=== PATIENT | male | born 1960 | race Caucasian/White ===

== ENCOUNTER 2017-06-01 08:38 | Emergency (ER) | payer OTHER ==
[~2017-06-01] VITALS: Ht 193 cm; Wt 108.9 kg
[2017-06-01] MEDS ORDERED: COUMADIN5 MG PO (08:53)
[2017-08-14] MEDS ORDERED: GLUCOSAMINE &1 EACH PO (14:48)
== END 2017-06-01 09:40 | disposition left against medical advice (07) ==
LOC: ED 08:38
DX: Z53.21 Procedure and treatment not carried out due to patient leaving prior to being seen by health care provider (principal)

== ENCOUNTER 2019-02-13 09:24 | Emergency (ER) | payer OTHER ==
[~2019-02-13] VITALS: Ht 193 cm; Wt 136.1 kg
[~2019-02-13 09:24] MED LIST: COUMADIN5 MG PO; GLUCOSAMINE &1 EACH PO; LISINOPRIL10 MG PO; MAGNESIUM500 MG PO
--- OUTSIDE RECORDS SUMMARY | 2019-02-13 09:28 | XMS ---
PreManage Notification: ELSI GRECO Security Licensed Physical Therapist Events No recent Security Events currently on file CRITERIA MET - Group Notification CARE PROVIDERS There are no care providers on record at this time. Melanie has no Care Guidelines for this patient. Pablo VISIT COUNT (12 MO.) 1 [facility] TOTAL 1 NOTE: Visits indicate total known visits. ED/C VISIT TRACKING (12 MO.) 02/13/2019 09:25 [facility] [place] TYPE: Emergency COMPLAINT: - BLOOD PRESSURE PROBLEM INPATIENT VISIT TRACKING (12 MO.) No inpatient visits to display in this time frame [id number]
== END 2019-02-13 09:40 | disposition home or self-care (01) ==
LOC: ED 09:24
DX: Z01.30 Encounter for examination of blood pressure without abnormal findings (principal)

== ENCOUNTER 2019-04-07 22:56 | Emergency (ER) | payer OTHER ==
[~2019-04-07] VITALS: Ht 193 cm; Wt 144.2 kg
--- OUTSIDE RECORDS SUMMARY | 2019-04-07 22:58 | XMS ---
PreManage Notification: ELSI GRECO Security Automotive Service Writer Events No recent Security Events currently on file CRITERIA MET - [facility] - Has Care Guidelines CARE PROVIDERS BIANCA REDMOND Internal Medicine 02/14/2019-Current PHONE: Unknown Melanie has no Care Guidelines for this patient. Care History Medical/Surgical 02/14/2019 [facility] - Patient is currently established with [facility]. If patient is seen in the ED during business hours. Please contact CHWs at [facility]. Care Recommendation: This patient has had 5 or more Emergency Department visits in the last 12 months.\T\nbsp; Patient requires education on the scope and purpose of the ED as an acute care provider not a Primary Care Provider and should not be utilized for chronic conditions.\T\nbsp;These are guidelines and the provider should exercise clinical judgment when providing care E.D. VISIT COUNT (12 MO.) 2 [facility] TOTAL 2 NOTE: Visits indicate total known visits. ED/UCC VISIT TRACKING (12 MO.) 04/07/2019 22:56 [facility] [place] TYPE: Emergency COMPLAINT: - BLOOD IN STOOL 02/13/2019 09:25 [facility] [place] TYPE: Emergency COMPLAINT: - BLOOD PRESSURE PROBLEM DIAGNOSES: - Encounter for examination of blood pressure without abnormal findings INPATIENT VISIT TRACKING (12 MO.) No inpatient visits to display in this time frame [email or web address]
== END 2019-04-08 00:19 | disposition home or self-care (01) ==
LOC: ED 22:56
DX: R19.5 Other fecal abnormalities (principal); I10 Essential (primary) hypertension; E11.9 Type 2 diabetes mellitus without complications; Z87.891 Personal history of nicotine dependence; Z88.0 Allergy status to penicillin; Z79.01 Long term (current) use of anticoagulants; Z79.899 Other long term (current) drug therapy
CPT/HCPCS: 80053; 85025; 85610; 85730; 86850; 86900; 86901; 99282

== ENCOUNTER 2019-04-08 06:44 | Emergency (ER) | payer OTHER ==
[~2019-04-08] VITALS: Ht 193 cm; Wt 144.2 kg
--- OUTSIDE RECORDS SUMMARY | 2019-04-08 06:46 | XMS ---
PreManage Notification: ELSI GRECO Security Subsystems Engineer Events No recent Security Events currently on file CRITERIA MET - [facility] - Has Care Guidelines - [facility] - 2 Visits in 30 Days CARE PROVIDERS BIANCA REDMOND Internal Medicine 02/14/2019-Current PHONE: Unknown Melanie has no Care Guidelines for this patient. Care History Medical/Surgical 02/14/2019 [facility] - Patient is currently established with [facility]. If patient is seen in the ED during business hours. Please contact CHWs at [facility]. Care Recommendation: This patient has had 5 or more Emergency Department visits in the last 12 months.\T\nbsp; Patient requires education on the scope and purpose of the ED as an acute care provider not a Primary Care Provider and should not be utilized for chronic conditions.\T\nbsp;These are guidelines and the provider should exercise clinical judgment when providing care E.D. VISIT COUNT (12 MO.) 3 [facility] TOTAL 3 NOTE: Visits indicate total known visits. ED/UCC VISIT TRACKING (12 MO.) 04/08/2019 06:44 [facility] TYPE: Emergency COMPLAINT: - URINATING BLOOD 04/07/2019 22:56 [facility] TYPE: Emergency COMPLAINT: - BLOOD IN STOOL 02/13/2019 09:25 [facility] TYPE: Emergency COMPLAINT: - BLOOD PRESSURE PROBLEM DIAGNOSES: - Encounter for examination of blood pressure without abnormal findings INPATIENT VISIT TRACKING (12 MO.) No inpatient visits to display in this time frame [email or web address]
== END 2019-04-08 22:30 | disposition short-term general hospital (02) ==
LOC: ED 06:44
DX: R31.0 Gross hematuria (principal); N28.89 Other specified disorders of kidney and ureter; D68.59 Other primary thrombophilia; I10 Essential (primary) hypertension; E11.9 Type 2 diabetes mellitus without complications; Z87.891 Personal history of nicotine dependence; Z88.0 Allergy status to penicillin; Z79.01 Long term (current) use of anticoagulants; Z79.899 Other long term (current) drug therapy
CPT/HCPCS: 36415; 74176; 76775; 81001; 85025; 85610; 86850; 86900; 86901; 87077; 87088; 87186; 93970; 96374; 99285-25; J2405

== ENCOUNTER 2020-01-27 12:09 | Emergency (ER) | payer OTHER ==
[~2020-01-27] VITALS: Ht 193 cm; Wt 145.2 kg
[~2020-01-27 12:09] MED LIST changes: +ELIQUIS5 MG PO
--- OUTSIDE RECORDS SUMMARY | 2020-01-27 12:14 | XMS ---
PreManage Notification: ELSI GRECO Security Area Director Of Home Health Sales Events No recent Security Events currently on file CRITERIA MET - [facility] - Has Care Guidelines CARE PROVIDERS BIANCA REDMOND Internal Medicine 02/14/2019-Current PHONE: [phone] Melanie has no Care Guidelines for this patient. Care History Medical/Surgical 02/14/2019 [facility] - Patient is currently established with [facility]. If patient is seen in the ED during business hours. Please contact CHWs at [facility]. Care Recommendation: This patient has had [...] providing care E.D. VISIT COUNT (12 MO.) [address] [facility] TOTAL 4 NOTE: Visits indicate total known visits. ED/UCC VISIT TRACKING (12 MO.) 01/27/2020 12:11 [facility] TYPE: Emergency COMPLAINT: - R ARM NUMB, DIFFICULTY SPEAKING 04/08/2019 06:44 [facility] TYPE: Emergency COMPLAINT: - URINATING BLOOD DIAGNOSES: - Other primary thrombophilia - Type 2 diabetes mellitus without complications - Gross hematuria - Hematuria, unspecified - Personal history of nicotine dependence - Other custodial (current) drug therapy - penitentiary (current) use of anticoagulants - Essential (primary) hypertension - Other specified disorders of kidney and ureter - Allergy status to penicillin 04/07/2019 22:56 [facility] [place] TYPE: Emergency COMPLAINT: - BLOOD IN STOOL DIAGNOSES: - Personal history of nicotine dependence - Type 2 diabetes mellitus without complications - Allergy status to penicillin - Other custodial (current) drug therapy - Other fecal abnormalities - Essential (primary) hypertension - penitentiary (current) use of anticoagulants 02/13/2019 09:25 [facility] TYPE: Emergency COMPLAINT: - BLOOD PRESSURE PROBLEM DIAGNOSES: - Encounter for examination of blood pressure without abnormal INPATIENT VISIT TRACKING (12 MO.) 07/11/2019 05:[address] [facility] TYPE: Urology DIAGNOSES: 14512. Other specified disorders of kidney and ureter 83521. 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 TYPE: Urology DIAGNOSES: 64844. Gross hematuria [email or web address]
[2020-01-27] MEDS ORDERED: K-TAB ER20 MEQ PO (12:24)
--- NOTE | 2020-01-28 19:43 | EKG ---
[facility] [address] [place], [place] [address] Signed Normal sinus rhythm Left axis deviation Right bundle branch block Abnormal ECG No previous ECGs available Confirmed by YUDI JIMENEZ DO ([id number]) on 01/28/2020 7:42:54 PM Electronically Signed By: YUDI JIMENEZ DO 01/28/201942 PATIENT NAME: ELSI GRECO Electrocardiogram DATE OF : 60 PHYSICIAN: YUDI JIMENEZ DO REPORT #: [id number] REPORT IS CONFIDENTIAL AND NOT TO BE RELEASED WITHOUT AUTHORIZATION
== END 2020-01-27 15:47 | disposition home or self-care (01) ==
LOC: ED 12:09
DX: E11.65 Type 2 diabetes mellitus with hyperglycemia (principal); R25.1 Tremor, unspecified; R47.81 Slurred speech; I10 Essential (primary) hypertension; Z87.891 Personal history of nicotine dependence; Z88.0 Allergy status to penicillin; Z79.899 Other long term (current) drug therapy
CPT/HCPCS: 70450; 80053; 83735; 84484; 85025; 93005; 93010; 99285-25; J1815; J7030

== ENCOUNTER 2020-01-29 17:46 | Emergency (ER) | payer OTHER ==
[~2020-01-29] VITALS: Ht 193 cm; Wt 145.2 kg
[~2020-01-29 17:46] MED LIST changes: +K-TAB ER20 MEQ PO
--- OUTSIDE RECORDS SUMMARY | 2020-01-29 17:48 | XMS ---
PreManage Notification: ELSI GRECO Security Visual Specialist Events No recent Security Events currently on file CRITERIA MET - [facility] - Has Care Guidelines - [facility] - 2 Visits in 30 Days CARE PROVIDERS BIANCA REDMOND Internal Medicine 02/14/2019-Current PHONE: [phone] Melanie has no Care Guidelines for this patient. Care History Medical/Surgical 01/28/2020 [facility] Patient had follow up televisit with Dr. Redmond this afternoon.\T\nbsp; Neurologist suggested radiculopathy and EEG. 02/14/2019 [facility] - Patient is currently established with [facility]. If patient is seen in the ED during business hours. Please contact CHWs at [facility]. Care Recommendation: This patient has [...] providing care E.D. VISIT COUNT (12 MO.) [address] [facility] TOTAL 5 NOTE: Visits indicate total known visits. ED/UCC VISIT TRACKING (12 MO.) 01/29/2020 17:47 [facility] TYPE: Emergency COMPLAINT: - R ARM NUMBNESS 01/27/2020 12:11 [facility] TYPE: Emergency COMPLAINT: - R ARM NUMB, DIFFICULTY SPEAKING 04/08/2019 06:44 [facility] TYPE: Emergency COMPLAINT: - URINATING BLOOD DIAGNOSES: - Other primary thrombophilia - Type 2 diabetes mellitus without complications - Gross hematuria - Hematuria, unspecified - Personal history of nicotine dependence - Other residential (current) drug therapy - remote computer terminal operator (current) use of anticoagulants - Essential (primary) hypertension - Other specified disorders of kidney and ureter - Allergy status to penicillin 04/07/2019 22:56 [facility] TYPE: Emergency COMPLAINT: - BLOOD IN STOOL DIAGNOSES: - Personal history of nicotine dependence - Type 2 diabetes mellitus without complications - Allergy status to penicillin - Other residential (current) drug therapy - Other fecal abnormalities - Essential (primary) hypertension - detention (current) use of anticoagulants 02/13/2019 09:25 [facility] [place] TYPE: Emergency COMPLAINT: - BLOOD PRESSURE PROBLEM DIAGNOSES: - Encounter for examination of blood pressure without abnormal INPATIENT VISIT TRACKING ( MO.) 07/11/2019 05:23 [facility] TYPE: Urology DIAGNOSES: 48372. Other specified disorders of kidney and ureter 32362. 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 Gross hematuria [email or web address]
[2020-01-29] MEDS ORDERED: METFORMIN HCL1000 MG PO (18:14)
[2020-01-29] MEDS ORDERED: GABAPENTIN300 MG PO (18:14)
== END 2020-01-29 21:07 | disposition short-term general hospital (02) ==
LOC: ED 17:46
DX: G40.409 Other generalized epilepsy and epileptic syndromes, not intractable, without status epilepticus (principal); I10 Essential (primary) hypertension; E11.9 Type 2 diabetes mellitus without complications; Z87.891 Personal history of nicotine dependence; Z88.0 Allergy status to penicillin; Z79.899 Other long term (current) drug therapy
CPT/HCPCS: 51702; 70450; 71045; 80053; 82010; 82800; 85025; 99285-25; G0480; J0456; J0696; J1815; J1953; J2060; J7060; J7121